=== PATIENT | male | born 1990 | race Native Hawaiian/Other Pacific Islander ===

== ENCOUNTER 2022-07-11 17:32 | Outpatient (CLI) | payer BC | END 2022-07-11 23:24 | disposition home or self-care (01) | LOC: RAD 17:32 | PROVIDERS: ATTEND Nurse Practitioner Family | DX: S60.351A Superficial foreign body of right thumb, initial encounter (principal); Y92.89 Other specified places as the place of occurrence of the external cause ==

== ENCOUNTER 2023-07-23 08:38 | Outpatient (CLI) | payer BC | END 2023-07-23 18:51 | disposition home or self-care (01) | LOC: MRI 08:38 | PROVIDERS: ATTEND Nurse Practitioner Family | DX: R47.81 Slurred speech (principal) | CPT/HCPCS: A9576 ==